=== PATIENT | female | born 1960 | race Caucasian/White ===

== ENCOUNTER 2024-05-26 06:22 | Day surgery (SDC) | payer OTHER, SELFPAY ==
[2024-05-11 10:30] VITALS: BMI 20.7
[2024-05-11 10:57] LABS: Hematocrit 37.3 % (37.0-47.0); Hemoglobin 13.1 g/dL (12.0-16.0); Mean Corp Hgb Conc. 35.1 g/dL (33.0-37.0); Mean Platelet Volume 8.7 fL (7.4-10.4); Platelet Count 295 10^3/uL (130-400); Red Cell Dist. Width 12.6 % (11.5-14.5); White Blood Cell Count 6.8 10^3/uL (4.8-10.8)
[2024-05-11 11:25] LABS: ALT (SGPT) 25 U/L (0-35); AST (SGOT) 23 U/L (14-36); Albumin 4.5 g/dl (3.5-5.0); Alkaline Phosphatase 90 U/L (38-126); Blood Urea Nitrogen 8 mg/dl (7-17); Calcium 9.2 mg/dl (8.4-10.2); Carbon Dioxide 27 mmol/L (22-30); Chloride 94 mmol/L (98-107); Estimated Creatinine Clearance 76 ml/min; Glucose 93 mg/dl (70-99); Potassium 4.1 mmol/L (3.5-5.1); Sodium 132 mmol/L (135-145); Total Bilirubin 0.5 mg/dl (0.2-1.3); Total Protein 7.2 g/dl (6.3-8.2); eGFR > 60.00
--- NOTE | 2024-05-11 13:44 | PTCARENOTE ---
Patients 06/11 ECG [address] by Dr. Steele, no additional interventions required
[2024-05-19 11:22] VITALS: BMI 20.7
[2024-05-26] VITALS (16 sets, daily range): BP systolic 96–160; BP diastolic 49–92; PULSE 102; O2SAT 97; BMI 20.7
[2024-05-26] MEDS: VANCOCIN 200 IV ×2 (10:04→21:37)
[2024-05-26] MEDS: CELEBREX 200 MG PO (10:15)
[2024-05-26] MEDS: SKELAXIN 800 MG PO (10:15)
[2024-05-26] MEDS: TYLENOL 1000 MG PO ×3 (10:15→21:36)
[2024-05-26] MEDS: LYRICA 150 MG PO (10:15)
[2024-05-26] MEDS: DILAUDID 0.5 MG IV (14:34)
--- NOTE | 2024-05-26 15:23 | W.PN.ORTHO ---
Today's Communication / Plan
-
D/c when clinically stable.
Assessment
.
Distal Motor Intact: Yes
Dressing:
Clean, dry and intact.
Assessment:
Lumbar stenosis w/ neurogenic claudication s/p L5-S1 TLIF w/ [facility] 05/26/24
DVT prophylaxis - b/l SCDs/TEDS
HTN - + parameters - monitor BP
Chronic pain syndrome - monitor pain and adjust pain meds prn
Mild pre-op hyponatremia - NSS over Normosol
- Fluid restrict
- Repeat sodium in AM
Migraines
Raynaud�s
Depression
Plan
.
Surgery / Date: L5-S1 TLIF w/ [facility] 05/26/24
DVT Prophylaxis: Other (b/l SCDs/TEDS)
Activity:
Out of bed.
PT/OT
Discharge Plan: Home
Subjective
.
.:
Patient examined resting in PACU.
Reporting 9/10 low back pain; however, was recently medicated w/ IV Dilaudid. Notably sleeps if undisturbed.
Denies any other new significant complaints.
Vital Signs and Labs
.
Vital Signs and Labs:
Lab Results
05/11/24 10:18
05/11/24 10:18
Physical Exam
-
HEENT: No pallor, cyanosis, or jaundice. Throat clear.
NECK: Supple. No JVD.
RESPIRATORY: Lungs clear to auscultation.
CVS: S1, S2 normal. RRR.�
ABDOMEN: Soft, non-tender. No distension.
EXTREMITIES: Strength equal, no calf pain with palpation/dorsiflexion. Calves soft.
TIER LIFT OPERATOR: AOx3. No focal deficits. switch cleaner grossly intact
[2024-05-26] MEDS: ERYTHROMYCIN 0.5% OPHTHALMIC OINTMENT 1 APPLIC OPHTH ×2 (15:31→21:36)
[2024-05-26] MEDS: NSS 1000 IV (15:50)
--- NOTE | 2024-05-26 16:27 | PTCARENOTE ---
Pt arrived to [facility] [address] from PACU s/p L5-S1 lumbar fusion. Pt AAOx3, NV intact all extremities. Pt lumbar dressing C/D/I. Pt oriented to call leon and room, bed locked and in lowest position, call leon within reach.
[2024-05-26] MEDS: SENOKOT 17.2 MG PO (21:36)
[2024-05-26] MEDS: LYRICA 75 MG PO (21:36)
[2024-05-26] MEDS: COLACE 100 MG PO (21:36)
[2024-05-26] MEDS: ROXICODONE 5 MG PO (23:28)
[2024-05-27 03:18] VITALS: BP 117/61
[2024-05-27] MEDS: TYLENOL 1000 MG PO (05:00)
[2024-05-27 05:51] LABS: Hematocrit 32.3 % (37.0-47.0); Hemoglobin 11.4 g/dL (12.0-16.0)
[2024-05-27 06:13] LABS: Blood Urea Nitrogen 6 mg/dl (7-17); Calcium 8.8 mg/dl (8.4-10.2); Carbon Dioxide 24 mmol/L (22-30); Chloride 100 mmol/L (98-107); Estimated Creatinine Clearance 75 ml/min; Glucose 92 mg/dl (70-99); Potassium 4.1 mmol/L (3.5-5.1); Sodium 134 mmol/L (135-145); eGFR > 60.00
--- NOTE | 2024-05-27 07:57 | W.DS.TRANS ---
DC Summary - Materials Intern
-
Discharge Instructions:
Sleep Apnea Risk Low
Discharge Diagnosis/Procedures Lumbar stenosis w/ neurogenic claudication s/p
L5-S1 TLIF w/ Dr Pearl 05/26/24
Diet Regular
Activity As tolerated
Additional Activity No heavy lifting >10 lbs
Driving Restrictions Not until seen by your Dr
Bathing Restrictions OK to shower in 4 days
Instructions:
Stand-Alone Forms: [facility] D/C Inst.
Changes to Home Medications: No
Discharge Medications:
DC Medications w/original date entered in [employer]
acetaminophen 325 mg tablet (Tylenol) 650 mg PO Q4H PRN pain 05/19/24
amlodipine 2.5 mg tablet 0.75 mg PO DAILY Blood Pressure 05/19/24
escitalopram oxalate 5 mg tablet (Lexapro) 5 mg PO DAILY Mental Health/Anxiety 05/19/24
ibuprofen 200 mg tablet (Advil) 100 mg PO Q6H PRN headache 05/19/24
metoclopramide HCl 10 mg tablet (Reglan) 10 mg PO Q6H PRN migraine 05/19/24
Home Medication Changes
Pending Results: No
--- NOTE | 2024-05-27 07:57 | W.PN.SP ---
Today's Communication / Plan
-
s/p TLIF
Doing well
PT
D/C
Subjective / Objective
Subjective Data
Doing well
Legs better
Denies weakness
Objective Data
Vital Signs
Temp Pulse Resp BP Pulse Ox
98.4 F 78 18 117/61 98
05/27/24 03:18 05/27/24 03:18 05/27/24 03:18 05/27/24 03:18 05/27/24 03:18
Intake and Output
05/26/24 05/27/24 05/28/24
06:59 06:59 06:59
Intake Total 250 / 250
Balance 250 / 250
Intake:
IV fluids (Total) 250 / 250
Normosol 250 / 250
Other:
Number of approximated MODERATE 1
amounts of urine
Number of approximated LARGE 1
amounts of urine
Lab Data
05/27/24 04:24
05/27/24 04:24
Physical Exam
-
Both L# 4-5/5
[2024-05-27 08:19] VITALS: BP 124/78
[2024-05-27] MEDS: LEXAPRO PO (08:46)
[2024-05-27] MEDS: SENOKOT 17.2 MG PO (08:47)
[2024-05-27] MEDS: COLACE 100 MG PO (08:48)
[2024-05-27] MEDS: LYRICA 75 MG PO (08:48)
[2024-05-27] MEDS: ROXICODONE 5 MG PO (08:51)
[2024-05-27] MEDS: ERYTHROMYCIN 0.5% OPHTHALMIC OINTMENT 1 APPLIC OPHTH (08:56)
[2024-05-27] MEDS: LEXAPRO 10 MG PO (08:57)
--- NOTE | 2024-05-27 10:50 | W.PN.ORTHO ---
Today's Communication / Plan
-
Await PT and OT recs.
D/c later today if remaining clinically stable.
Assessment
.
Distal Motor Intact: Yes
Dressing:
Clean, dry and intact.
Assessment:
Lumbar stenosis w/ neurogenic claudication s/p L5-S1 TLIF w/ Dr Pearl 05/26/24
DVT prophylaxis - b/l SCDs/TEDS
HTN - + parameters - BPs stable
Chronic pain syndrome - pain reportedly well tolerated by POD 1
Mild pre-op hyponatremia - NSS over Normosol
- Fluid restrict
- Repeat sodium 134 POD 1
Migraines
Raynaud�s
Mild post-op anemia
Depression
Plan
.
Surgery / Date: L5-S1 TLIF w/ Dr Pearl 05/26/24
DVT Prophylaxis: Other (b/l SCDs/TEDS)
Activity:
Out of bed.
PT/OT
Discharge Plan: Home
Subjective
.
.:
Patient resting comfortably in bed.
Low back pain minimal in comparison to yesterday.
Denies any new significant complaints.
AM labs w/ mild post-op anemia; otherwise, labs stable.
Eager for potential d/c today.
Vital Signs and Labs
.
Vital Signs and Labs:
Lab Results
05/27/24 04:24
05/27/24 04:24
Temp Pulse Resp BP Pulse Ox
98.3 F 80 15 124/78 96
05/27/24 08:19 05/27/24 08:19 05/27/24 08:19 05/27/24 08:48 05/27/24 08:19
--- NOTE | 2024-05-27 11:04 | W.DS.TRANS ---
DC Summary - Polarity Tester
-
Discharge Instructions:
Sleep Apnea Risk Low
Discharge Diagnosis/Procedures Lumbar stenosis w/ neurogenic claudication s/p
left L5-S1 transforaminal lumbar interbody
fusion w/ Dr Dae 05/26/24
Diet Regular
Activity As tolerated
Additional Activity No heavy lifting >10 lbs
Driving Restrictions Not until seen by your Dr
Bathing Restrictions OK to shower in 4 days
Instructions:
Stand-Alone Forms: [facility] D/C Inst.
Changes to Home Medications: Yes
Discharge Medications:
DC Medications w/original date entered in [email or web address]
metoclopramide HCl 10 mg tablet (Reglan) 10 mg PO Q6H PRN migraine 05/19/24
Saccharomyces boulardii 250 mg capsule (Florastor) 250 mg PO BID #10 caps 05/27/24
acetaminophen 325 mg tablet (Tylenol) 650 mg (2 x 325 mg) PO Q4HWA pain #0 tabs 05/27/24
amlodipine 2.5 mg tablet 0.75 mg (0.3 x 2.5 mg) PO DAILY #1 tab 05/27/24
baclofen 5 mg tablet 5 mg PO HS PRN muscle spasms #10 tabs 05/27/24
clindamycin HCl 300 mg capsule 300 mg PO Q6H #20 caps 05/27/24
docusate sodium 100 mg capsule 100 mg PO BID #30 caps 05/27/24
erythromycin 5 mg/gram (0.5 %) eye ointment 1 applic ophthalmic (eye) QID PRN eye irritation #3.5 grams 05/27/24
escitalopram oxalate 20 mg tablet 30 mg (1.5 x 20 mg) PO DAILY #1 tab 05/27/24
oxycodone 5 mg tablet 5 - 10 mg (1 - 2 x 5 mg) PO Q6H PRN moderate-severe pain #30 tabs 05/27/24
pregabalin 75 mg capsule 75 mg PO BID neuropathic pain #15 caps 05/27/24
sennosides 8.6 mg tablet (Senna Laxative) 17.2 mg (2 x 8.6 mg) PO BID #30 tabs 05/27/24
Home Medication Changes
Saccharomyces boulardii 250 mg capsule (Florastor) 250 mg PO BID #10 caps 05/27/24
acetaminophen 325 mg tablet (Tylenol) 650 mg (2 x 325 mg) PO Q4HWA pain #0 tabs 05/27/24
baclofen 5 mg tablet 5 mg PO HS PRN muscle spasms #10 tabs 05/27/24
clindamycin HCl 300 mg capsule 300 mg PO Q6H #20 caps 05/27/24
docusate sodium 100 mg capsule 100 mg PO BID #30 caps 05/27/24
erythromycin 5 mg/gram (0.5 %) eye ointment 1 applic ophthalmic (eye) QID PRN eye irritation #3.5 grams 05/27/24
oxycodone 5 mg tablet 5 - 10 mg (1 - 2 x 5 mg) PO Q6H PRN moderate-severe pain #30 tabs 05/27/24
pregabalin 75 mg capsule 75 mg PO BID neuropathic pain #15 caps 05/27/24
sennosides 8.6 mg tablet (Senna Laxative) 17.2 mg (2 x 8.6 mg) PO BID #30 tabs 05/27/24
Pending Results: No
--- NOTE | 2024-05-27 11:35 | CM ---
Met with pt and her sister at bedside
Pt reports she lives alone in a single floor condo on 2nd [address] of building; 5 steps to enter, 13 steps to 2nd fl
Independent, employed FT, drives
DME - single point cane, rolling walker, grabber
SNF/HH - denies past hx
Has ride home at discharge
PCP - Patricia Cunha
Pharm - [facility]
Pts sister plans to stay with her for the first few days after discharge from hospital
Plan - anticipate home no needs
[2024-05-27] MEDS: TYLENOL PO (11:46)
[2024-05-27 12:05] VITALS: BP 145/83; PULSE 83; O2SAT 98
[2024-05-27 12:08] VITALS: BP 145/92
== END 2024-05-27 12:35 | disposition home or self-care (01) ==
LOC: SDS 06:22
PROVIDERS: Physician Assistant; ATTENDING PHYSICIAN Orthopaedic Surgery Orthopaedic Surgery of the Spine; FAMILY PHYSICIAN Family Medicine
DX: M48.062 Spinal stenosis, lumbar region with neurogenic claudication (principal); M43.16 Spondylolisthesis, lumbar region
CPT/HCPCS: 22633; 22840; 22853; C1713; 36415; 72100; 76000; 80048; 80053; 85014; 85018; 85027; 87070; 93005; 97116; 97162